=== PATIENT | female | born 1955 | race Caucasian/White ===

== ENCOUNTER 2016-09-18 07:06 | Day surgery (SDC) | payer BC ==
--- NOTE | ~2016-09-18 | EGD ---
EGD REPORT [facility] [address] [place]. [address] NAME: DELIA CRAIG : [birth year] [place] : [place] [facility] [place] [id number] AGE: 60 ADM/REG DATE : 09/18/16 MR#: [id number] REPORT SERV DATE: 09/18/16 DICTATED BY: JAVON BARTLETT DATE: 09/18/16 REPORT STATUS : Draft TRANSCRIBED BY: [facility] DATE: 09/18/16 Endoscopy Center Patient Name: Delia Criag Date of : 1955 Attending MD: ADRIANA BARTLETT MD Procedure Date No Time: 09/18/2016 Procedure: Upper GI endoscopy Indications: Iron deficiency anemia, Heme positive stool Referring MD: Rafa WEBSTER Medicines: See the Anesthesia note for documentation of the administered medications Complications: No immediate complications. Estimated blood loss: Minimal. Procedure: Pre-Anesthesia Assessment: - ASA Grade Assessment: III - A patient with severe systemic disease. - Prior to the procedure, a History and Physical was performed, and patient medications and allergies were reviewed. The patient's tolerance of previous anesthesia was also reviewed. The risks and benefits of the procedure and the sedation options and risks were discussed with the patient. All questions were answered, and informed consent was obtained. Prior Anticoagulants: The patient has taken aspirin, last dose was day of procedure. After reviewing the risks and benefits, the patient was deemed in satisfactory condition to undergo the procedure. After obtaining informed consent, the endoscope was passed under direct vision. Throughout the procedure, the patient's blood pressure, pulse, and oxygen saturations were monitored continuously. The GIF H190 [id number] was introduced through the mouth, and advanced to the second part of duodenum. The upper GI endoscopy was accomplished without difficulty. The patient tolerated the procedure well. Findings: The examined duodenum was normal. Diffuse moderate inflammation characterized by adherent blood, congestion (edema) and erythema was found in the stomach. Biopsies were taken with a cold forceps for histology. The cardia and gastric fundus were normal on retroflexion. Abnormal motility was noted in the esophagus. Tertiary peristaltic waves are noted. EGD REPORT [address] [address] NAME: DELIA CRAIG : [birth year] [place] [facility] [place] [id number] AGE: 60 ADM/REG DATE : 09/18/16 MR#: [id number] REPORT SERV DATE: 09/18/16 DICTATED BY: JAVON BARTLETT DATE: 09/18/16 REPORT STATUS : Draft [facility]ANSCRIBED BY: [facility] DATE: 09/18/16 Impression: - Normal examined duodenum. - Gastritis. Biopsied. - Esophageal motility disorder. Recommendation: - Patient has a contact number available for emergencies. The signs and symptoms of potential delayed complications were discussed with the patient. Return to normal activities tomorrow. Written discharge instructions were provided to the patient. - Regular diet. - Discharge patient to home. - Continue present medications. - Await pathology results. Procedure Code(s): --- Professional --- 56537, Esophagogastroduodenoscopy, flexible, transoral; with biopsy, single or multiple Diagnosis Code(s): --- Professional --- K29.70, Gastritis, unspecified, without bleeding K22.4, Dyskinesia of esophagus D50.9, Iron deficiency anemia, unspecified R19.5, Other fecal abnormalities CPT copyright 2013 [employer]. All rights reserved. The codes documented in this report are preliminary and upon martial arts instructor review may be revised to meet current compliance requirements. ADRIANA BARTLETT MD 09/18/2016 8:23 AM This report has been signed electronically. Number of Addenda: 0 Note Initiated On: 09/18/2016 8:10 AM Scope Withdrawal Time 0 hours 0 minutes 0 seconds [address] [place] [address]
--- NOTE | ~2016-09-18 | EGD ---
EGD REPORT [facility] [address] [address] NAME: DELIA CRAIG : [birth year] [place]US : [place] [facility] [place] PAT#: [id number] AGE: 60 ADM/REG DATE : 09/18/16 MR#: [id number] REPORT SERV DATE: 09/18/16 DICTATED BY: JAVON BARTLETT DATE: 09/18/16 REPORT STATUS : Draft TRANSCRIBED BY: [facility] DATE: 09/18/16 Endoscopy Center Patient Name: Delia Craig Date of : 1955 Attending MD: ADRIANA BARTLETT MD Procedure Date No Time: 09/18/2016 Procedure: Colonoscopy Indications: Heme positive stool, Iron deficiency anemia Referring MD: Rafa WEBSTER Medicines: See the Anesthesia note for documentation of the administered medications Complications: No immediate complications. Estimated blood loss: None. Procedure: Pre-Anesthesia Assessment: - ASA Grade Assessment: III - A patient with severe systemic disease. - Prior to the procedure, a History and Physical was performed, and patient medications and allergies were reviewed. The patient's tolerance of previous anesthesia was also reviewed. The risks and benefits of the procedure and the sedation options and risks were discussed with the patient. All questions were answered, and informed consent was obtained. Prior Anticoagulants: The patient has taken aspirin, last dose was day of procedure. After reviewing the risks and benefits, the patient was deemed in satisfactory condition to undergo the procedure. After I obtained informed consent, the scope was passed under direct vision. Throughout the procedure, the patient's blood pressure, pulse, and oxygen saturations were monitored continuously. The PCF [id number] was introduced through the anus and advanced to the terminal ileum. The ileocecal valve, appendiceal orifice, terminal ileum and rectum were photographed. The entire colon was examined. The colonoscopy was performed without difficulty. The patient tolerated the procedure well. The quality of the bowel preparation was adequate. Findings: The perianal and digital rectal examinations were normal. The terminal ileum appeared normal. A sessile polyp was found in the proximal descending colon. The polyp was diminutive in size. The polyp was removed with a cold biopsy forceps. Resection and retrieval were complete. Non-bleeding internal hemorrhoids were found during retroflexion and were Grade I (internal hemorrhoids that do not prolapse). EGD REPORT [address] [address] NAME: DELIA CRAIG : [birth year] STATUS : REG [facility]#: [id number] AGE: 60 ADM/REG DATE : 09/18/16 MR#: [id number] REPORT SERV DATE: 09/18/16 DICTATED BY: JAVON BARTLETT DATE: 09/18/16 REPORT STATUS : Draft TRANSCRIBED BY: [employer] DATE: 09/18/16 No other significant abnormalities were identified in a careful examination of the remainder of the colon. Impression: - The examined portion of the ileum was normal. Recommendation: - Patient has a contact number available for emergencies. The signs and symptoms of potential delayed complications were discussed with the patient. Return to normal activities tomorrow. Written discharge instructions were provided to the patient. - Regular diet. - Discharge patient to home. - Continue present medications. - Await pathology results. - Repeat colonoscopy in 5 years for surveillance. Procedure Code(s): --- Professional --- 22910, Colonoscopy, flexible, proximal to splenic flexure; with biopsy, single or multiple Diagnosis Code(s): --- Professional --- R19.5, Other fecal abnormalities D50.9, Iron deficiency anemia, unspecified CPT copyright 2013 [employer]. All rights reserved. The codes documented in this report are preliminary and upon inspector experimental assembly review may be revised to meet current compliance requirements. ADRIANA BARTLETT MD 09/18/2016 8:36 AM This report has been signed electronically. Number of Addenda: 0 Note Initiated On: 09/18/2016 8:05 AM Scope Withdrawal Time 0 hours 6 minutes 15 seconds [address] [address]
[~2016-09-18 07:06] MED LIST: ASA5GR PO; B121000P IM; CRESTOR10 PO; FOLIC PO; MTX50; NEXIUM40 PO; NORCO1 TA2 PO; NORV10 PO; P5 PO; PLAQ200B PO; TOPXL50 PO; TRAZ100 PO; ZOL50 PO
== END 2016-09-18 23:59 | disposition home or self-care (01) ==
LOC: DMU 07:06
PROVIDERS: Internal Medicine Gastroenterology
PROC: 0DBM8ZX Excision of Descending Colon, Via Natural or Artificial Opening Endoscopic, Diagnostic (ICD-10-PCS; principal; 2016-09-18 08:30)
PROC: 0DB68ZX Excision of Stomach, Via Natural or Artificial Opening Endoscopic, Diagnostic (ICD-10-PCS; 2016-09-18 08:30)
DX: K63.5 Polyp of colon (principal); K31.89 Other diseases of stomach and duodenum; K22.4 Dyskinesia of esophagus; M06.9 Rheumatoid arthritis, unspecified; F41.9 Anxiety disorder, unspecified; E66.9 Obesity, unspecified; D50.9 Iron deficiency anemia, unspecified; Z86.73 Personal history of transient ischemic attack (TIA), and cerebral infarction without residual deficits; Z91.040 Latex allergy status; Z98.890 Other specified postprocedural states
CPT/HCPCS: 88305